=== PATIENT | male | born 1995 | race Two or more races ===

== ENCOUNTER 2024-09-22 13:44 | Emergency (ER) | payer OTHER ==
[2024-09-22 14:00] VITALS: BP 129/81; PULSE 101; RESP 16; TEMP 98.4; BMI 31.9
[2024-09-22] MEDS ORDERED: ACETAMINOPHEN 500 MG TABLET (FP) ONE (14:22)
[2024-09-22] MEDS ORDERED: IBUPROFEN 400 MG TABLET (FP) PO ONE (14:22)
[2024-09-22] MEDS: IBUPROFEN 400 MG TABLET (FP) PO ONE (14:26)
[2024-09-22] MEDS: ACETAMINOPHEN 500 MG TABLET (FP) PO ONE (14:26)
== END 2024-09-22 14:29 | disposition home or self-care (01) ==
LOC: JERFT 13:44
DX: S39.012A Strain of muscle, fascia and tendon of lower back, initial encounter (principal); V79.49XA Driver of bus injured in collision with other motor vehicles in traffic accident, initial encounter
CPT/HCPCS: 99283-25